=== PATIENT | male | born 1985 | race Caucasian/White ===

== ENCOUNTER 2018-07-20 17:33 | Emergency (ER) | payer OTHER ==
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
[2018-07-20 20:48] VITALS: BP 130/69
== END 2018-07-20 20:48 | disposition home or self-care (01) ==
LOC: ER 17:33
DX: S30.1XXA Contusion of abdominal wall, initial encounter (principal); V49.50XA Passenger injured in collision with unspecified motor vehicles in traffic accident, initial encounter
CPT/HCPCS: 99283

== ENCOUNTER 2018-10-03 18:29 | Emergency (ER) | payer MEDICAID, OTHER ==
[2018-10-03] MEDS ORDERED: HYDROCODONE/ACETAMINOPHEN 5-325 MG (6 TAB/ER DISP) PO PRN (20:15)
[2018-10-03] MEDS ORDERED: LIDOCAINE 5% (700 MG) TRANSDERMAL ADH..PATCH TP ONE (20:15)
[2018-10-03] MEDS ORDERED: IBUPROFEN 800 MG TABLET PO ONE (20:16)
--- NOTE | 2018-10-03 20:26 | ER Document Report ---
HPI - HPI Patient complains to provider of: Low back pain, left shoulder pain Time Seen by Provider: 10/03/18 20:06 Onset/Duration: Persistent Quality of pain: Achy Pain Level: 2 Context: Patient states he has had chronic low back pain for over 2 years and left shoulder pain for over a year. 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 Patient states he stepped off of the forklift today jarring his back. Patient complains of a flareup of his left shoulder and back pain. Patient denies any paresthesia. Patient denies any fever or IV drug use. Patient denies any urinary retention or incontinence. Associated Symptoms: Other - Left shoulder, low back pain Exacerbated by: Standing, Movement, Walking Relieved by: Denies Similar symptoms previously: Yes Recently seen / treated by doctor: No - ROS ROS below otherwise negative: Yes Systems Reviewed and Negative: Yes All other systems reviewed and negative - CONSTITUTIONAL Constitutional: DENIES: Fever - NEURO Neurology: DENIES: Weakness - GASTROINTESTINAL Gastrointestinal: DENIES: Nausea - URINARY Urinary: DENIES: Dysuria - MUSCULOSKELETAL Musculoskeletal: REPORTS: Extremity pain - Left shoulder, Back Pain - DERM Skin Color: Normal Skin Problems: None Past Medical History - General Information source: Patient - Social History Smoking Status: Never Smoker Frequency of alcohol use: None Drug Abuse: None Occupation: [employer] machine operator Family History: Reviewed & Not Pertinent Patient has suicidal ideation: No Patient has homicidal ideation: No Renal/ Medical History: Denies: Hx Peritoneal Dialysis Musculoskeletal Medical History: Reports Other - Low back Past Surgical History: Reports: Hx Orthopedic Surgery - back - Immunizations Hx Diphtheria, Pertussis, Tetanus Vaccination: Yes Vertical Provider Document - CONSTITUTIONAL Agree With Documented VS: Yes Exam Limitations: No Limitations General Appearance: WD/WN, No Apparent Distress Notes: PHYSICAL EXAMINATION: GENERAL: Well-appearing, well-nourished and in no acute distress. HEAD: Atraumatic, normocephalic. EYES: sclera clear, anicteric, conjunctiva are normal. ENT: nares patent, Moist mucous membranes. NECK: Normal range of motion, supple no lymphadenopathy LUNGS: respirations unlabored HEART: Regular rate and rhythm without murmurs EXTREMITIES: Mild tenderness to left shoulder joint to the anterior aspect of humeral head, full range of motion without crepitus. Normal skin color and temperature overlying left shoulder joint. Normal range of motion, no pitting or edema. No cyanosis. Gait normal, pt ambulates without difficulty BACK: Left lower lumbar paraspinal tenderness, lower lumbar midline tenderness, no deformities or step-offs. No CVA tenderness. NEUROLOGICAL: Cranial nerves grossly intact. Normal speech, normal gait. No saddle anesthesia. PSYCH: Normal mood, normal affect. SKIN: Warm, Dry, normal turgor, no rashes or lesions noted. - INFECTION CONTROL TRAVEL OUTSIDE OF THE [place] IN LAST 30 DAYS: No Course - Re-evaluation Re-evalutation: 10/03/18 20:18 Patient presents with chronic left shoulder and low back pain. Patient denies any recent injury. Patient encouraged to follow-up with orthopedics for further evaluation of his pain symptoms. Patient does feel that he operating a forklift has aggravated his left shoulder pain and he states that he stepped off of a forklift wrong jarring his back which aggravated his low back pain. The patient presents with low back pain without signs of spinal cord compression, cauda equina syndrome, infection, aneurysm, or other serious etiology. The patient is neurologically intact. Given the extremely risk of these diagnoses further testing and evaluation for these possibilities does not appear to be indicated at this time. Patient has been instructed to return if the symptoms worsen or change in any way. - Vital Signs Vital signs: Temp Pulse Resp BP Pulse Ox 98.1 F 83 13 135/68 H 98 10/03/18 19:00 10/03/18 19:00 10/03/18 19:00 10/03/18 19:00 10/03/18 19:00 Discharge - Discharge Clinical Impression: Left shoulder tendonitis Low back pain Qualifiers: Chronicity: acute Back pain laterality: left Sciatica presence: with sciatica Sciatica laterality: sciatica of left side Qualified Code(s): M54.42 - Lumbago with sciatica, left side Condition: Stable Disposition: HOME, SELF-CARE Instructions: Ice Packs ([facility]), Low Back Pain ([facility]), Tendonitis ([facility]) Additional Instructions: Return immediately for any new or worsening symptoms Followup with your primary care provider, call tomorrow to make a followup appointment Follow up with orthopedics, call tomorrow for an appointment Prescriptions: Cyclobenzaprine HCl [Flexeril 10 Mg Tablet] 10 mg PO TID #15 tablet Naproxen [Naprosyn 250 Nmg Tablet] 1 tab PO BID #14 tablet Forms: Return to Work Referrals: [facility] ([facility]EL) [Provider Group] - Follow up as needed
[2018-10-03 20:52] VITALS: BP 113/70
== END 2018-10-03 20:52 | disposition home or self-care (01) ==
LOC: ER 18:29
DX: M54.42 Lumbago with sciatica, left side (principal); M75.92 Shoulder lesion, unspecified, left shoulder; M25.512 Pain in left shoulder; G89.29 Other chronic pain
CPT/HCPCS: 99283

== ENCOUNTER 2018-12-07 05:39 | Emergency (ER) | payer SELFPAY ==
[2018-12-07] MEDS ORDERED: ASPIRIN 81 MG TABLET, CHEWABLE PO ONE (06:36)
[2018-12-07 06:51] LABS: ABSOLUTE EOSINOPHILS # (AUTO) 0.2 10^3/uL (0.0-0.6); ABSOLUTE MONOCYTES (AUTO) 0.7 10^3/uL (0.1-1.4); ABSOLUTE NEUT (AUTO) 3.3 10^3/uL (1.7-8.2); BASOPHILS % (AUTO) 0.5 % (0-2); EOSINOPHILS % (AUTO) 2.8 % (0-6); HEMATOCRIT 42.9 % (37.9-51.0); HEMOGLOBIN 14.8 g/dL (13.5-17.0); LYMPHOCYTES % (AUTO) 32.2 % (13-45); MEAN CORPUSCULAR HGB CONC 34.4 g/dL (32.0-36.0); MEAN CORPUSCULAR VOLUME 82 fl (80-97); MONOCYTES % (AUTO) 11.8 % (3-13); PLATELET COUNT 246 10^3/uL (150-450); RED BLOOD COUNT 5.26 10^6/uL (4.35-5.55); RED CELL DISTRIBUTION WIDTH 12.8 % (11.5-14.0); SEGMENTED NEUTROPHILS % (AUTO) 52.7 % (42-78); TOTAL CELLS COUNTED % (AUTO) 100 %; WHITE BLOOD COUNT 6.3 10^3/uL (4.0-10.5)
[2018-12-07] MEDS ORDERED: KETOROLAC TROMETHAMINE 60 MG/2 ML SDV IM ONE (06:51)
[2018-12-07 07:13] LABS: ALBUMIN 4.1 g/dL (3.5-5.0); ALKALINE PHOSPHATASE 75 U/L (38-126); ANION GAP 8 (5-19); ASPARTATE AMINO TRANSFERASE 20 U/L (17-59); BILIRUBIN,DIRECT 0.1 mg/dL (0.0-0.4); BILIRUBIN,TOTAL 0.5 mg/dL (0.2-1.3); BLOOD UREA NITROGEN 7 mg/dL (7-20); CALCIUM 9.2 mg/dL (8.4-10.2); CARBON DIOXIDE 25 mmol/L (22-30); CHLORIDE 106 mmol/L (98-107); GLUCOSE 99 mg/dL (75-110); POTASSIUM 4.2 mmol/L (3.6-5.0); TOTAL PROTEIN 6.8 g/dL (6.3-8.2)
--- NOTE | 2018-12-07 07:40 | RADIOLOGY REPORT (SQ) ---
EXAM DESCRIPTION: XR CHEST 1 VIEW COMPLETED DATE/TME: 12/07/2018 06:40 CLINICAL HISTORY: 33 years Male, chest pain COMPARISON: None. NUMBER OF VIEWS/TECHNIQUE: 1/AP FINDINGS: Adequate lung volume, clear parenchyma, normal cardiac silhouette, and intact bony thorax. IMPRESSION: No acute cardiopulmonary findings.
[2018-12-07 08:47] VITALS: BP 113/70
--- NOTE | 2018-12-08 10:20 | EKG REPORT ---
SEVERITY:- NORMAL ECG - SINUS RHYTHM : Confirmed by: Donovan Ruiz 08-Dec-2018 10:20:26
--- NOTE | 2018-12-09 10:33 | ER Document Report ---
Entered by BEBO CHENG SCRIBE 12/07/18 0651 Acting as scribe for:SHANITA MARTINEZ MD ED General - General Chief Complaint: Chest Pain Stated Complaint: CHEST PAIN Time Seen by Provider: 12/07/18 06:39 Primary Care Provider: RIVERA,JOSUE [Primary Care Provider] - Follow up as needed Notes: Patient is a 33-year-old male presenting to the emergency department complaining of chest pain. Patient states that the pain has been going on for a week now, and that is constant. Patient states that the pain is exacerbated with deep breathes. Patient describes the pain as sharp, sometimes it is dull. Patient states that it is not his left chest, does not radiate to the right. Patient denies having any congestion, being recently sick, experiencing hematemesis, history of blood clots, noticing any edema in his legs. TRAVEL OUTSIDE OF THE [place] IN LAST 30 DAYS: No - Related Data Allergies/Adverse Reactions: No Known Allergies Allergy (Unverified 04/01/16 17:02) Past Medical History - General Information source: Patient - Social History Smoking Status: Never Smoker Cigarette use (# per day): No Chew tobacco use (# tins/day): No Frequency of alcohol use: None Drug Abuse: None Family History: Reviewed & Not Pertinent Past Surgical History: Reports: Hx Orthopedic Surgery - back - Immunizations Hx Diphtheria, Pertussis, Tetanus Vaccination: Yes Review of Systems - Review of Systems Constitutional: No symptoms reported EENT: No symptoms reported Cardiovascular: See HPI, Chest pain Respiratory: No symptoms reported. denies: Other - Congestion, hematemesis Gastrointestinal: No symptoms reported Genitourinary: No symptoms reported Male Genitourinary: No symptoms reported Musculoskeletal: No symptoms reported. denies: Other - Edema in legs bilaterally Skin: No symptoms reported Hematologic/Lymphatic: No symptoms reported Neurological/Psychological: No symptoms reported -: Yes All other systems reviewed and negative Physical Exam - Vital signs Vitals: Temp Pulse Resp BP Pulse Ox 97.8 F 79 18 142/74 H 96 12/07/18 05:47 12/07/18 05:47 12/07/18 05:47 12/07/18 05:47 12/07/18 05:47 - Notes Notes: Physical Exam: General: Alert, appears well. HEENT: Normocephalic. Atraumatic. PERRL. Extraocular movements intact. Oropharynx clear. Neck: Supple. Non-tender. Respiratory: No respiratory distress. Clear and equal breath sounds bilaterally. Cardiovascular: Regular rate and rhythm. Abdominal: Normal Inspection. Non-tender. No distension. Normal Bowel Sounds. Back: Non-tender. No deformity or step off. Extremities: Moves all four extremities. Upper extremities: Normal inspection. Normal ROM. Lower extremities: Normal inspection. No edema. Normal ROM. Neurological: Normal cognition. AAOx4. Normal speech. Psychological: Normal affect. Normal Mood. Skin: Warm. Dry. Normal color. Course - Re-evaluation Re-evalutation: 12/07/18 08:41 No cough or congestion suggest pneumonia. Symptoms improved with Toradol. EKG normal. PERC negative and low risk chest pain with negative troponin. No concerning EKG findings for pericarditis. - Vital Signs Vital signs: Temp Pulse Resp BP Pulse Ox 98.2 F 79 22 H 113/70 97 12/07/18 08:44 12/07/18 05:47 12/07/18 08:43 12/07/18 08:44 12/07/18 08:43 - Laboratory Result Diagrams: 12/07/18 06:42 12/07/18 06:42 - EKG Interpretation by Me EKG shows normal: Sinus rhythm - Normal axis/interval. No concern for ST depression/elevation Rate: Normal - 78 Discharge - Discharge Clinical Impression: Chest pain Qualifiers: Chest pain type: unspecified Qualified Code(s): R07.9 - Chest pain, unspecified Condition: Good Disposition: HOME, SELF-CARE Prescriptions: RX: Naproxen 500 mg PO BID #10 tablet Forms: Return to Work Referrals: [facility] [Primary Care Provider] - Follow up as needed I personally performed the services described in the documentation, reviewed and edited the documentation which was dictated to the scribe in my presence, and it accurately records my words and actions.
== END 2018-12-07 08:47 | disposition home or self-care (01) ==
LOC: ER 05:39
DX: R07.9 Chest pain, unspecified (principal)
CPT/HCPCS: 93005; 99284; 96372; 36415; 85025; 80053; 84484; 71045; 93010; J1885